=== PATIENT | female | born 2000 | race Two or more races ===

== ENCOUNTER 2025-03-18 12:45 | Emergency (ER) | payer OTHER ==
[~2025-03-18] VITALS: Ht 177.8 cm; Wt 67.1 kg
[2025-03-18] MEDS ORDERED: GUAIFENESIN/DEXTROMETHORPHAN 100MG/10ML BLIST.PACK PO STA (17:27)
[2025-03-18] MEDS ORDERED: CETIRIZINE HCL 5 MG/5 ML ML PO STA (17:28)
[2025-03-18] MEDS ORDERED: GUAIFENESIN/DEXTROMETHORPHAN 100MG/10ML BLIST.PACK PO ONE (17:35)
[2025-03-18] MEDS ORDERED: CETIRIZINE HCL 5MG/5ML BLIST.PACK PO ONE (17:35)
[2025-03-18 17:53] LABS: BASO % 0.5 % (0.1-1.2); EOS # 0.33 (0.04-0.54); EOS % 4.1 % (0.7-7.0); HEMATOCRIT 42.2 % (34.1-44.9); HEMOGLOBIN 14.2 g/dL (11.2-15.7); LYMPH # 1.57 (1.18-3.74); LYMPH % 19.6 % (19.3-53.1); MEAN CORPUSCULAR HEMOGLOBIN 29.7 pg (25.6-32.2); MONO # 0.71 (0.24-0.82); MONO % 8.8 % (4.7-12.5); NEUT # 5.37 (1.56-6.13); NEUT % 66.9 % (34.0-71.1); PLATELET COUNT 243 K/uL (163-369); RED BLOOD COUNT 4.78 M/uL (3.93-5.22); RED CELL DISTRIBUTION WIDTH 12.1 % (11.6-14.4)
[2025-03-18 18:26] LABS: COVID-19 AG NEGATIVE (NEGATIVE)
[2025-03-18 18:27] LABS: INFLUENZA A AG NEGATIVE (NEGATIVE)
[2025-03-18] MEDS ORDERED: MUCINEX DM ER1 EACH PO (19:18)
[2025-03-18] MEDS ORDERED: ZYRTEC10 MG PO (19:18)
[2025-03-18] MEDS ORDERED: BENZONATATE200 M1 PO (19:18)
[2025-03-18] MEDS ORDERED: SINGULAIR10 MG PO (19:18)
== END 2025-03-18 19:46 | disposition home or self-care (01) ==
LOC: ER 12:45
PROVIDERS: General Practice
DX: J06.9 Acute upper respiratory infection, unspecified (principal); R05.9 Cough, unspecified; Z20.822 Contact with and (suspected) exposure to COVID-19